=== PATIENT | male | born 1955 | race Caucasian/White ===

== ENCOUNTER 2017-08-05 17:06 | Emergency (ER) | payer OTHER ==
[2017-08-05 17:08] VITALS: BP 182/99; PULSE 78; RESP 12; TEMP 98.2; O2SAT 97
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
[2017-08-05 22:34] VITALS: BP 155/68
== END 2017-08-05 22:42 | disposition home or self-care (01) ==
LOC: NEPD 17:06
DX: R07.9 Chest pain, unspecified (principal); I10 Essential (primary) hypertension; V43.52XA Car driver injured in collision with other type car in traffic accident, initial encounter
CPT/HCPCS: 71046; 99283